=== PATIENT | female | born 1935 | race Caucasian/White ===

== ENCOUNTER 2016-10-01 11:39 | Emergency (ER) | payer MEDICARE, OTHER ==
[2016-10-01 11:53] VITALS: O2SAT 97
--- NOTE | 2016-10-01 12:22 | ERPHSYRPT ---
- History of Present Illness Time Seen by Provider: 10/01/16 11:52 Source: patient, family Exam Limitations: no limitations Patient Subjective Stated Complaint: hypertension this morning Triage Nursing Assessment: pt states she took bp and bp pill at same time this morning and bp was slightly elevated and then pt got an upsettign phone call and rechecked bp and it was elevated to diastolic over 105. pt c/o lt head pain. pt states she is 'worry wart and sometimes i do this but i dont want to have a stroke' Physician History: patient concerned about flucuating BP over the past few days; sometimes too low and sometimes too high when gets upset; no RANDLE or new visual changes; no dizziness; BP meds changed a few months ago; doesn't like feelings but hasn't told her MD; has appt in October; no palpatations or chest pain or sob Timing/Duration: today, intermittent Severity: moderate Modifying Factors: Improves With: medication, other (stress) Associated Symptoms: denies symptoms Allergies/Adverse Reactions: metronidazole [From Flagyl] Allergy (Verified 10/01/16 11:53) hallucinations Home Medications: Amlodipine Besylate [Norvasc] 5 mg PO DAILY 05/20/15 [History] Diazepam 2 mg PO TID 10/01/16 [History] Lisinopril 20 mg [Zestril 20 MG] 20 mg PO HS 10/01/16 [History] Hx Tetanus, Diphtheria Vaccination/Date Given: Yes Hx Influenza Vaccination/Date Given: No Hx Pneumococcal Vaccination/Date Given: No Immunizations Up to Date: Yes - Review of Systems Constitutional: No Symptoms Eyes: No Symptoms Ears, Nose, & Throat: No Symptoms Respiratory: No Cough, No Dyspnea, No Wheezing Cardiac: No Chest Pain, No Palpitations, No Syncope Abdominal/Gastrointestinal: Constipation, No Abdominal Pain, No Nausea, No Vomiting, No Diarrhea Genitourinary Symptoms: No Symptoms Musculoskeletal: Arthralgias, No Fall, No Injury Skin: No Symptoms Neurological: No Symptoms Psychological: Anxiety, No Alcohol Abuse, No Drug Abuse, No Suicidal Ideations Endocrine: No Symptoms Hematologic/Lymphatic: No Symptoms Immunological/Allergic: No Symptoms - Past Medical History Pertinent Past Medical History: Yes Neurological History: No Pertinent History ENT History: Cataracts Cardiac History: Hypertension Respiratory History: COPD Endocrine Medical History: No Pertinent History, Other Musculoskeletal History: Fractures GI Medical History: No Pertinent History History: No Pertinent History Psycho-Social History: No Pertinent History Female Reproductive Disorders: No Pertinent History Other Medical History: aortic stenosis - Past Surgical History Past Surgical History: Yes Neuro Surgical History: No Pertinent History Cardiac: No Pertinent History Respiratory: No Pertinent History Gastrointestinal: Colon Resection, Other Genitourinary: No Pertinent History Musculoskeletal: No Pertinent History Female Surgical History: No Pertinent History Other Surgical History: 2006.REPAIR OF COLON PERFORATION, fatty tumor removed from under right arm - Social History Smoking Status: Never smoker Exposure to second hand smoke: No Alcohol Use: None Drug Use: none Patient Lives Alone: Yes Significant Family History: no pertinent family hx - Female History Hx Now: No - Nursing Vital Signs Nursing Vital Signs: Initial Vital Signs Temperature 97.9 F Temperature Source Oral Pulse Rate 79 Respiratory Rate 18 Blood Pressure [Right Arm] 163/89 Pain Intensity 2 - Physical Exam General Appearance: mild distress, alert, anxiety, thin Eye Exam: PERRL/EOMI, eyes nml inspection, other (hypertensive changes of fundi ; no papiledema), No photophobia Ears, Nose, Throat Exam: normal ENT inspection, TMs normal, pharynx normal, moist mucous membranes Neck Exam: normal inspection, non-tender, supple, full range of motion, carotid bruit (bilateral referred from heart), No meningismus, No Brudzinski, No JVD Respiratory Exam: normal breath sounds, lungs clear, airway intact, No chest tenderness, No respiratory distress Cardiovascular Exam: regular rate/rhythm, normal heart sounds, normal peripheral pulses, murmur (4/6 blowing [place] referred to carotids bilateral), capillary refill <2 sec, No friction rub Gastrointestinal/Abdomen Exam: soft, normal bowel sounds, No tenderness, No distention, No guarding, No pulsatile mass, No rebound, No organomegaly Pelvic Exam: not done Rectal Exam: deferred Back Exam: normal inspection, normal range of motion, No CVA tenderness, No vertebral tenderness Extremity Exam: normal inspection, normal range of motion, No mary's sign, No pedal edema Neurologic Exam: alert, oriented x 3, cooperative, laborer laboratory II-XII nml as tested, normal mood/affect, nml cerebellar function, nml station & gait Skin Exam: normal color, warm, dry, No rash, No petechiae SpO2 Interpretation: normal SpO2: 97 Oxygen Delivery: Room Air - Course Nursing assessment & vital signs reviewed: Yes EKG Interpreted by Me: RATE (81), Sinus Rhythm, NORMAL AXIS, NORMAL INTERVALS, NORMAL QRS, NORMAL ST-T Rhythm Strip: Rate (82), Normal Sinus Rhythm Ordered Tests: Active Orders 24 hr Category Date Time Status Jockey Room Custodian STAT Care 10/01/16 12:05 Active EKG-ER Only STAT Care 10/01/16 12:05 Active Pulse Oximetry (ED) STAT Care 10/01/16 12:05 Active Re-Check Vital Signs STAT Care 10/01/16 12:05 Completed BMP Stat Lab 10/01/16 12:15 Completed CBC W DIFF Stat Lab 10/01/16 12:15 Completed Lab/Rad Data: Laboratory Result Diagrams 10/01/16 12:15 10/01/16 12:15 Laboratory Results 10/01/16 10/01/16 Range/Units 12:15 12:15 WBC 4.9 (4.0-10.5) K/mm3 RBC 4.20 (4.1-5.4) M/mm3 Hgb 13.1 (12.0-16.0) gm/dl Hct 41.1 (35-47) % MCV 97.9 (78-100) fl MCH 31.2 (26-32) pg MCHC 31.9 L (32-36) g/dl RDW 12.7 (11.5-14.0) % Plt Count 143 L (150-450) K/mm3 MPV 10.2 H (6-9.5) fl Gran % 74.1 H (36.0-66.0) % Lymphocytes % 15.2 L (24.0-44.0) % Monocytes % 9.9 (0.0-12.0) % Eosinophils % 0.6 (0.00-5.0) % Basophils % 0.2 (0.0-0.4) % Basophils # 0.01 (0-0.4) Sodium 141 (136-145) mEq/L Potassium 3.7 (3.5-5.1) mEq/L Chloride 106 (98-107) mEq/L Carbon Dioxide 27.9 (21-32) mEq/L Anion Gap 10.4 (5-15) MEQ/L BUN 18 (9-20) mg/dL Creatinine 0.81 (0.55-1.30) mg/dl Estimated GFR > 60 ML/MIN Glucose 100 (70-110) MG/DL Calcium 9.4 (8.5-10.1) mg/dL - Progress Progress: improved (on recheck), re-examined (after 30 min) Progress Note: 10/01/16 12:22 will get EKG and labs and recheck BP; family at bedside 10/01/16 12:43 CBC wnl; EKG wnl; rechecked VS and improving; patient feels and looks better; other labs pending; will observe and recheck 10/01/16 12:53 rechecked and patient and VS continue to improve; labs ok; discussed treatment plan and instructions; son-in-law at bedside Counseled pt/family regarding: lab results, diagnosis, need for follow-up - Departure Time of Disposition: 12:54 Departure Disposition: Home Clinical Impression: Hypertension, Anxiety about health Condition: Stable Critical Care Time: No Referrals: RITA MOCTEZUMA MD [Primary Care Provider] - Instructions: Hypertension Additional Instructions: rest take meds; call LMD and or Assistant Child Care Teacher for BP and meds recheck Follow-up with family doctor as directed. Call for appointment. Return if any problems. If you smoke please stop. Call or follow up with your family doctor for assistance if you need it to stop. Please wear your seatbelt when driving. Have a nice day. Thank you for allowing us to participate in your care today. :o) Dr Vargas Morris
[2016-10-01 12:24] LABS: BASOPHIL % 0.2 % (0.0-0.4); Eosinophil % 0.6 % (0.00-5.0); Granulocytes % 74.1 % (36.0-66.0); Lymphocytes % 15.2 % (24.0-44.0); Mean Cell Volume 97.9 fl (78-100); Mean Corpuscular Hemoglobin 31.2 pg (26-32); Mean Platelet Volume 10.2 fl (6-9.5); Monocytes % 9.9 % (0.0-12.0); Platelet Count 143 K/mm3 (150-450); Red Cell Distribution Width 12.7 % (11.5-14.0); White Blood Count 4.9 K/mm3 (4.0-10.5)
[2016-10-01 12:40] LABS: ANION GAP 10.4 MEQ/L (5-15); BLOOD UREA NITROGEN 18 mg/dL (9-20); CHLORIDE 106 mEq/L (98-107); Carbon Dioxide 27.9 mEq/L (21-32); Glucose 100 MG/DL (70-110); Potassium 3.7 mEq/L (3.5-5.1); SODIUM 141 mEq/L (136-145)
[2016-10-01 13:03] VITALS: BP 175/92; PULSE 78
== END 2016-10-01 13:00 | disposition home or self-care (01) ==
LOC: ED 11:39
DX: I10 Essential (primary) hypertension (principal); F41.9 Anxiety disorder, unspecified; J44.9 Chronic obstructive pulmonary disease, unspecified; Z79.899 Other long term (current) drug therapy; K59.00 Constipation, unspecified
CPT/HCPCS: 36415; 80048; 85025; 93005; 93041; 99284

== ENCOUNTER 2016-10-17 13:30 | Emergency (ER) | payer MEDICARE, OTHER ==
[2016-10-17] MEDS ORDERED: TYLENOL 325 MG PO STA (13:57)
--- NOTE | 2016-10-17 14:01 | ERPHSYRPT ---
- History of Present Illness Time Seen by Provider: 10/17/16 13:40 Source: patient Exam Limitations: clinical condition Patient Subjective Stated Complaint: fall--09 Triage Nursing Assessment: fell putting clothes on this morning at 0900. bruise noted to inner rt and lt elbow. lt breast bruise. pain to lt scapula area. pain with breathing and palpation. denies loc. Physician History: PATIENT WHILE REMOVING HER CLOTHES THIS AM TRIPPED AND FELL TO FLOOR SUSTAINED LEFT CHEST WALL INJURY, HAS LEFT SHOULDER BLADE PAIN. DENIES HEAD, NECK OR BACK INJURY Occurred: this morning Reason for Fall: tripped Injuries/Pain Location: chest Loss of Consciousness: no loss of consciousness Quality: stabbing Severity of Pain-Max: moderate Severity of Pain-Current: moderate Allergies/Adverse Reactions: metronidazole [From Flagyl] Allergy (Verified 10/17/16 13:39) hallucinations Home Medications: Amlodipine Besylate [Norvasc] 5 mg PO DAILY 05/20/15 [History] Diazepam 2 mg PO TID 10/01/16 [History] Lisinopril 20 mg [Zestril 20 MG] 20 mg PO HS 10/01/16 [History] Hx Tetanus, Diphtheria Vaccination/Date Given: Yes Hx Influenza Vaccination/Date Given: No Hx Pneumococcal Vaccination/Date Given: No - Review of Systems Constitutional: No Symptoms Respiratory: No Cough, No Dyspnea Cardiac: Chest Pain Genitourinary Symptoms: No Dysuria Musculoskeletal: Back Pain, Injury Neurological: No Dizziness, No Focal Weakness, No Sensory Changes - Past Medical History Pertinent Past Medical History: Yes Neurological History: No Pertinent History ENT History: Cataracts Cardiac History: Hypertension Respiratory History: COPD Endocrine Medical History: No Pertinent History, Other Musculoskeletal History: Fractures GI Medical History: No Pertinent History History: No Pertinent History Psycho-Social History: No Pertinent History Female Reproductive Disorders: No Pertinent History Other Medical History: aortic stenosis - Past Surgical History Past Surgical History: Yes Neuro Surgical History: No Pertinent History Cardiac: No Pertinent History Respiratory: No Pertinent History Gastrointestinal: Colon Resection, Other Genitourinary: No Pertinent History Musculoskeletal: No Pertinent History Female Surgical History: No Pertinent History Other Surgical History: 2006.REPAIR OF COLON PERFORATION, fatty tumor removed from under right arm - Social History Smoking Status: Never smoker Exposure to second hand smoke: No Alcohol Use: None Drug Use: none Patient Lives Alone: Yes Significant Family History: no pertinent family hx - Female History Hx Now: No - Nursing Vital Signs Nursing Vital Signs: Initial Vital Signs Temperature 97.8 F Temperature Source Oral Pulse Rate 88 Respiratory Rate 18 Blood Pressure [Right Arm] 176/83 Pain Intensity 6 - Physical Exam General Appearance: no apparent distress, alert Head Injury: no evidence of injury Eye Exam: PERRL/EOMI ENT Exam: airway nml Neck Exam: supple, full range of motion, normal inspection, other (NONTENDER), No tenderness Respiratory/Chest Exam: chest tenderness (LEFT MID 5TH TO 8TH RIBS, NO ECCHYMOSIS, NO CREPITUS), normal breath sounds, No respiratory distress Cardiovascular Exam: normal heart sounds, regular rate/rhythm Gastrointestinal Exam: soft, No tenderness, No distention, No guarding, No ecchymosis Back Exam: normal inspection, other (TENDERNESS LEFT MID SCAPULA NO ECCHMOSIS), No vertebral tenderness Extremity Exam: normal inspection, normal range of motion, pelvis stable, No deformities Peripheral Pulses: carotid (R): 2+, carotid (L): 2+, femoral (R): 2+, femoral (L ): 2+, dorsalis-pedis (R): 2+, dorsalis-pedis (L): 2+ Neurologic Exam: alert, oriented x 3, cooperative, sensation nml, No motor deficits Skin Exam: normal color, warm, dry SpO2 Interpretation: normal SpO2: 98 - Radiology Exams Chest X-ray Interpretation: Interpreted by me, Negative Left Ribs X-ray Interpretation: Interpreted by me, Other (MINIMAL DISPLACED LEFT 7TH, 8TH RIB FRACTURE) Ordered Tests: Active Orders 24 hr Category Date Time Status CHEST 2 VIEWS (PA AND LAT) Stat Exams 10/17/16 13:58 Taken RIBS UNILATERAL Stat Exams 10/17/16 13:58 Taken SHOULDER Stat Exams 10/17/16 13:59 Taken Medication Summary Discontinued Medications Generic Name Dose Route Start Last Admin Trade Name Sidra PRN Reason Stop Dose Admin Acetaminophen 650 mg 10/17/16 13:57 10/17/16 14:02 Tylenol 325 Mg PO 10/17/16 13:58 650 mg STAT STA Administration Acetaminophen Confirm 10/17/16 14:02 Tylenol 325 Mg Administered 10/17/16 14:03 Dose 650 mg .ROUTE .STK-MED ONE - Progress Progress Note: 10/17/16 15:45 REFUSED OPIATES, GIVEN TYLENOL 650MG ORALLY Counseled pt/family regarding: diagnosis, need for follow-up, rad results - Departure Time of Disposition: 15:50 Departure Disposition: Home Clinical Impression: LEFT 7TH 8TH RIB FRACTURES Condition: Stable Critical Care Time: No Additional Instructions: FOLLOWUP WITH YOUR FAMILY PHYSICIAN IN 1 WEEK. CONTINUE TYLENOL FOR PAIN MID TO MODERATE, OR 1/2 TABLET OF TYLENOL #3 EVERY 4-8 HOURS NEEDED FOR SEVERE PAIN. RETURN TO EMERGENCY FOR DIFFICULTY BREATHING OR INCREASING PAIN. Prescriptions: Codeine Phosphate/APAP #3 [Tylenol #3 Tablet] 1 tab PO Q6HPRN PRN #15 tablet PRN Reason: Pain
[2016-10-17] MEDS ORDERED: TYLENOL 325 MG ONE (14:02)
[2016-10-17 16:03] VITALS: BP 157/80; PULSE 79; O2SAT 87
--- NOTE | 2016-10-17 18:54 | XRAY ---
Indication: Left-sided pain following fall. Comparison: July 14, 2006. PA/lateral chest again hyperinflated and clear. Heart and mediastinal structures are stable and within normal limits. Bony thorax intact again with mild osteopenia and remote T6/T8 compression fractures. Left ribs reported separately. Impression: Stable nonacute hyperinflated chest with chronic findings.
--- NOTE | 2016-10-17 18:56 | XRAY ---
Indication: Pain following fall. Comparison: None 3 views of the left shoulder demonstrates osteopenia and humeral head osteophyte. No other bony, articular, or soft tissue abnormalities.
--- NOTE | 2016-10-17 18:56 | XRAY ---
Indication: Pain following fall. Comparison: None 2 views of the left ribs demonstrate nondisplaced lateral 6th/7th rib fractures and osteopenia. No underlying pneumothorax/hemothorax.
== END 2016-10-17 16:02 | disposition home or self-care (01) ==
LOC: ED 13:30
DX: S22.42XA Multiple fractures of ribs, left side, initial encounter for closed fracture (principal); W01.0XXA Fall on same level from slipping, tripping and stumbling without subsequent striking against object, initial encounter
CPT/HCPCS: 71020; 71100; 73030; 99283; 99284; A9270-GY

== ENCOUNTER 2022-04-25 22:04 | Emergency (ER) | payer MEDICARE, OTHER ==
--- NOTE | 2022-04-25 22:10 | ERPHSYRPT ---
- History of Present Illness Time Seen by Provider: 04/25/22 22:10 Source: patient, EMS Exam Limitations: no limitations Physician History: This is 86-year-old white female patient has chronic back pain issues and known history of spinal compression fractures who states in the last week, and specifically since Tuesday, he has had worsening back pain. However, per patient report, she only takes Tylenol for her pain control. She did not fall and did not have any new trauma to the area. Patient arrives via ambulance service without much back pain complaints at all. Patient received intravenous fentanyl in route to the hospital. Patient has a history of hypertension. She has no loss of bowel or bladder control. She is not numb in her feet. Her pain in the lower back is keeping her from moving well on her own. Method of Injury: other (No injury) Quality: sharp Back Pain Location: lumbar spine Severity of Pain-Max: moderate Severity of Pain-Current: none Modifying Factors: Improves With: movement Associated Symptoms: lower back pain, No urinary incontinence, No loss of bowel control, No problems urinating, No numbness in legs/feet Previous symptoms: same symptoms as today Allergies/Adverse Reactions: iodine Allergy (Intermediate, Verified 04/25/22 22:32) IV contrast dye cephalexin [From Keflex] Allergy (Verified 04/25/22 22:32) metronidazole [From Flagyl] Allergy (Verified 04/25/22 22:32) hallucinations Home Medications: Amlodipine Besylate [Norvasc] 5 mg PO DAILY 05/20/15 [History] Losartan Potassium 25 mg PO BID 04/25/22 [History] Hx Tetanus, Diphtheria Vaccination/Date Given: Yes Hx Influenza Vaccination/Date Given: No Hx Pneumococcal Vaccination/Date Given: No Travel Risk - International Travel Have you traveled outside of the country in past 3 weeks: No - Coronavirus Screening Are you exhibiting any of the following symptoms?: No Close contact with a COVID-19 positive Pt in past 14-21 Days: No - Review of Systems Constitutional: No Symptoms Eyes: No Symptoms Ears, Nose, & Throat: No Symptoms Respiratory: No Symptoms Cardiac: No Symptoms Abdominal/Gastrointestinal: No Symptoms Genitourinary Symptoms: No Symptoms Musculoskeletal: Back Pain, No Fall, No Injury Skin: No Symptoms Neurological: No Symptoms Psychological: No Symptoms Endocrine: No Symptoms Hematologic/Lymphatic: No Symptoms Immunological/Allergic: No Symptoms All Other Systems: Reviewed and Negative - Past Medical History Pertinent Past Medical History: Yes Neurological History: No Pertinent History ENT History: Cataracts Cardiac History: Hypertension, Other Respiratory History: No Pertinent History Endocrine Medical History: No Pertinent History Musculoskeletal History: Fractures, Osteoporosis GI Medical History: No Pertinent History History: No Pertinent History Psycho-Social History: No Pertinent History Female Reproductive Disorders: No Pertinent History Other Medical History: PT. HAS AORTIC STENOSIS THAT WILL LIKELY REQUIRE SX SOON. HX SPINAL COMPRESSION FX. 2007 COLONSCOPY AND BOWEL PERF W/ TEMP COLOSTOMY X 4 MOS. REPORTS SHE HAS NOT HAD PELVIC EXAM FOR 5+ YEARS. LAST PHYSICAL EXAM 12/22/21. - Past Surgical History Past Surgical History: Yes Neuro Surgical History: No Pertinent History Cardiac: No Pertinent History Respiratory: No Pertinent History Gastrointestinal: Colon Resection, Other Genitourinary: No Pertinent History Musculoskeletal: No Pertinent History Female Surgical History: No Pertinent History Other Surgical History: 2006.REPAIR OF COLON PERFORATION, fatty tumor removed from under right arm - Social History Smoking Status: Never smoker Exposure to second hand smoke: No Alcohol Use: None Drug Use: none Patient Lives Alone: Yes Significant Family History: no pertinent family hx - Nursing Vital Signs Nursing Vital Signs: Initial Vital Signs Temperature 98.6 F 04/25/22 22:17 Pulse Rate 90 04/25/22 22:17 Respiratory Rate 20 04/25/22 22:17 Blood Pressure 174/79 04/25/22 22:17 O2 Sat by Pulse Oximetry 96 04/25/22 22:17 Pain Scale Pain Intensity [Back] 2 Pain Intensity 2 - Physical Exam General Appearance: no apparent distress, alert, anxiety, thin Eye Exam: PERRL/EOMI, eyes nml inspection Ears, Nose, Throat Exam: normal ENT inspection, TM abnormal (L) Neck Exam: normal inspection, non-tender, supple, full range of motion Respiratory Exam: normal breath sounds, lungs clear, airway intact, No chest tenderness, No respiratory distress Cardiovascular Exam: regular rate/rhythm, normal heart sounds, normal peripheral pulses Pelvic Exam: not done Rectal Exam: not done Back Exam: normal inspection, normal range of motion, No CVA tenderness Extremity Exam: normal inspection, normal range of motion, pelvis stable Neurologic Exam: alert, oriented x 3, cooperative, pharmacy messenger II-XII nml as tested, normal mood/affect Skin Exam: normal color, warm, dry Lymphatic Exam: No adenopathy SpO2 Interpretation: normal O2 Delivery: Room Air - Course Nursing assessment & vital signs reviewed: Yes Ordered Tests: Active Orders 24 hr Category Date Time Status ABDOMEN AND PELVIS W/0 CONTRAS [CT] Stat Exams 04/25/22 22:32 Taken - Progress Progress: improved, pain not gone completely Progress Note: 04/25/22 23:44 CAT scan of the abdomen and pelvis without contrast shows mild to moderate dextroscoliosis and L2 compression fracture that is present. There is no evidence of abdominal aortic aneurysm. Radiologist reports that there is no evidence of acute intra-abdominal or pelvic pathology. The additional findings in the body of the report are nonemergent per his evaluation. Counseled pt/family regarding: diagnosis, need for follow-up, rad results - Departure Departure Disposition: Home Clinical Impression: Back pain, Compression fracture of L2 Condition: Stable Critical Care Time: No Referrals: RITA MOCTEZUMA MD [Primary Care Provider] - Follow up/PCP as directed Additional Instructions: Take the medicine as prescribed. Follow-up with your primary care provider, pain specialist or back specialist for further evaluation and management of your spine and pain control Prescriptions: Hydrocodone/APAP 5/325 [[place] 5/325 mg] 1 each PO Q12H PRN PRN #6 tablet MDD 2 PRN Reason: Pain
[2022-04-25] MEDS ORDERED: NORCO 5/325 MG PO ONE (23:48)
[2022-04-26 00:27] VITALS: O2SAT 96
[2022-04-26] MEDS ORDERED: SUBLIMAZE 100 MCG/2 ML IV ONE (00:36)
[2022-04-26 01:01] LABS: Appearance CLEAR (CLEAR); Bilirubin NEGATIVE (NEGATIVE); Dipstick done @ ? MAIN LAB; Glucose NEGATIVE (NEGATIVE); Ketones SMALL-15 (NEGATIVE); Nitrite NEGATIVE (NEGATIVE); Ph 5.5 (5-6); Protein,Urine Dip 30 (Negative); RBC LARGE Ery/ul (0-5); Specific Gravity 1.025 (1.005-1.025); Urobilinogen 0.2 mg/dL (0-1)
[2022-04-26 01:05] LABS: Mucus SLIGHT /HPF (NEGATIVE); WBC 0-2 /HPF (0-5)
[2022-04-26 01:06] LABS: Urine Cultured Indicated? YES
[2022-04-26 01:30] VITALS: PULSE 94
[2022-04-26] MEDS ORDERED: SUBLIMAZE 100 MCG/2 ML ONE (01:51)
[2022-04-26] MEDS ORDERED: NORCO 5/325 MG ONE (01:52)
[2022-04-26 02:05] VITALS: BP 145/71
--- NOTE | 2022-04-26 08:59 | XRAY ---
Indication: Abdomen pain, bloating, and constipation. Multiple contiguous axial images obtained through the abdomen and pelvis without contrast. Comparison: October 24, 2019 Lung bases demonstrates new minimal right effusion with right base compressive atelectasis. Stable bibasilar subsegmental fibrosis/scarring. Heart not enlarged. Noncontrasted stomach and bowel loops are nonobstructed. Mild fecal debris predominantly in the ascending colon. No free fluid/air. Again tiny gallstones without abnormal biliary distention and 90 mm exophytic right upper pole renal cyst. Remaining liver, gallbladder, pancreas, spleen, adrenal glands, kidneys, ureters, bladder, and uterus are unremarkable for noncontrast exam. There remains moderate scattered aortoiliac calcifications without AAA. Osseous structures again demonstrates osteopenia, moderate degenerative changes of the visualized lumbar spine, moderate dextrorotoscoliosis centered at L1, and mild degenerative changes both hips. New remote-appearing L2 superior endplate fracture with approximately 50% height loss. Impression: 1. New tiny right effusion/atelectasis. 2. Again tiny gallstones, small right renal cyst, arteriosclerotic disease, and chronic bony findings. 3. Remaining CT abdomen/pelvis without contrast exam is negative. Comment: Preliminary interpretation by [facility]. No critical discrepancy.
== END 2022-04-26 02:15 | disposition home or self-care (01) ==
LOC: ED 22:04
DX: M48.56XA Collapsed vertebra, not elsewhere classified, lumbar region, initial encounter for fracture (principal); M54.50 Low back pain, unspecified; I10 Essential (primary) hypertension; Z79.891 Long term (current) use of opiate analgesic; Z79.899 Other long term (current) drug therapy
CPT/HCPCS: 36000; 74176; 81015; 87086; 96374; 99284; J3010; A9270-GY